=== PATIENT | female | born 1945 | race Caucasian/White ===

== ENCOUNTER 2017-04-09 06:15 | Inpatient (IN) | payer OTHER ==
[2017-03-12 10:38] VITALS: BMI 36.0
--- NOTE | 2017-03-12 11:13 | PAT Medication Instructions ---
Service Date March 12, 2017. Current Home Medication List Atenolol (Tenormin), 50 MG PO HS Biotin (Biotin), 1,000 MCG PO QAM Levothyroxine Sodium (Levothyroxine Sodium), 1 TAB PO HS Lisinopril (Prinivil), 30 MG PO HS Multiple Vitamins W/ Minerals (Icaps Mv), 1 TAB PEG QAM Naproxen (Aleve), 220 MG PO DAILY Omeprazole (Prilosec), 20 MG PO QAM Polyethylene Glycol-Propylene (Systane), 1 DROPS OP BID PRN for RN Simvastatin (Zocor), 40 MG PO HS Timolol Maleate (Ophth) (Timoptic-Xe 0.5% Oph), 1 DROPS OP QAM Medication Instructions For Your Scheduled Surgery - Check with surgeon for instructions: Naproxen (Aleve), 220 MG PO DAILY - Hold the following medications the morning of surgery with a sip of water: Multiple Vitamins W/ Minerals (Icaps Mv), 1 TAB PEG QAM Biotin (Biotin), 1,000 MCG PO QAM - Take the following medications the morning of surgery with a sip of water: Timolol Maleate (Ophth) (Timoptic-Xe 0.5% Oph), 1 DROPS OP QAM Polyethylene Glycol-Propylene (Systane), 1 DROPS OP BID PRN for RN Omeprazole (Prilosec), 20 MG PO QAM - Hold the following medications as scheduled the night before surgery: Lisinopril (Prinivil), 30 MG PO HS - Take the following medications as scheduled the night before surgery: Simvastatin (Zocor), 40 MG PO HS Polyethylene Glycol-Propylene (Systane), 1 DROPS OP BID PRN for RN Levothyroxine Sodium (Levothyroxine Sodium), 1 TAB PO HS Atenolol (Tenormin), 50 MG PO HS If you have any questions please call us at [phone] (Amanda Foote PA-C ) or [phone] or [phone]
--- NOTE | 2017-03-12 11:45 | DIAGNOSTIC IMAGING REPORT ---
CHEST PREADMISSION(PA/LAT) HISTORY: Preop. COMPARISON: None. FINDINGS: The lungs are clear. Cardiac silhouette is normal in size. No pleural effusions. No pneumothorax. IMPRESSION: No acute process. Electronically signed by: David Berry M.D. 03/12/2017 11:44 AM Dictated Date/Time: 03/12/2017 11:42 AM
[2017-03-12 12:08] LABS: PROTHROMBIN TIME (PATIENT) 10.3 SECONDS (9.0-12.0)
--- NOTE | 2017-04-03 12:03 | HISTORY & PHYSICAL EXAMINATION ---
DATE OF ADMISSION: 04/09/2017 CHIEF COMPLAINT: Bilateral knee pain, left side greater than right. HISTORY OF PRESENT ILLNESS: The patient is a 72-year-old female from [place], who presents for surgical treatment of her left knee. She had a long history of bilateral knee pain and discomfort, left side greater than right. She has been through extensive conservative treatment provided by Dr. Barakat in [place]. She has had steroid shots and viscosupplementation. These things worked initially pretty well, but became less successful over time. She describes chronic pain. The more she walks, the more it hurts. She has nighttime pain. She cannot walk any significant distance even to the grocery store without significant pain. She has failed conservative treatment and would like to have her left knee replaced. PAST MEDICAL HISTORY: Significant for, 1. Borderline diabetes. 2. Elevated cholesterol. 3. Hypertension. 4. Obesity with a BMI of 36.2. 5. Gastroesophageal reflux disease. PAST SURGICAL HISTORY: Include: 1. Tonsillectomy. 2. Cataract surgery. ALLERGIES: None. CURRENT MEDICINES: 1. Atenolol 50 mg once a day. 2. Lisinopril 30 mg a day. 3. Simvastatin 40 mg a day. 4. Levothyroxine 100 mcg a day. 5. Omeprazole 30 mg a day. 6. Timolol eyedrops once a day. 7. ICAPS once a day. SOCIAL HISTORY: She is a 72-year-old female. She is . 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 One child. FAMILY HISTORY: Includes heart disease, diabetes, and stomach cancer. REVIEW OF SYSTEMS: Significant for prediabetes. Denies any chest pain or shortness of breath. No history of DVT or PE. No bleeding problems. PHYSICAL EXAMINATION: GENERAL: Reveals a pleasant, middle-aged female. Looks to be in pretty good health. HEENT: Benign. NECK: Supple. No lymphadenopathy. LUNGS: Clear to auscultation. HEART: Regular rate and rhythm. ABDOMEN: Soft, nontender, and nondistended. EXTREMITIES: Grossly neurovascularly intact except as follows: Examination of the left knee reveals the patient ambulates with a slight bit of a limp. She has got moderate soft tissue envelope. Fairly neutral to slight varus knee alignment. Range of motion is about 5 degrees short of full extension and 120 degrees of flexion. No instability. No pain with hip motion. X-RAYS: X-rays of the left knee were reviewed. It shows advanced left knee DJD. She has complete loss of medial joint space. She has subchondral sclerosis. Some mild tibial femoral subluxation. She has got significant patellofemoral disease as well. 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 She has failed conservative treatment and would like to have her left knee replaced. PLAN: We are going to take her to the operating room and do a left total knee replacement. The risks and benefits of this procedure were explained to the patient including, but not limited to DVT, PE, , infection, neurological injury, vascular injury, bleeding problem, pain, limited range of motion, stiffness, failure to relieve her symptoms, incomplete relief of symptoms, need for further surgery in the future, fracture, leg length inequality, nerve palsy, etc. The patient understands and desires to proceed. Informed consent was obtained. As far as discharge plans, she is planning to be discharged to home using [facility] home health program. We did talk about holding her lisinopril in the morning of surgery and make sure she takes her atenolol and levothyroxine.
[2017-04-09] VITALS (9 sets, daily range): BP systolic 117–155; BP diastolic 64–85; PULSE 53–68; TEMP 36.4–36.9; O2SAT 96–100; Ht 157.5 cm; Wt 89.8 kg
[~2017-04-09] VITALS: Ht 157.5 cm; Wt 89.8 kg
[~2017-04-09 06:15] MED LIST: ACETAMINOPHEN 500 MG TAB PO SCH; ATEN50TA8 PO; BIOT1TAB5 PO; BUPIVACAINE LIPOSOME 266 MG, BUPIVACAINE/EPINEPHRINE INJ 50 ML, SODIUM CHLORIDE 0.9% PF... INFIL SCH; CEFAZOLIN 2000 MG/60 ML D5W 60 ML IV SCH; FAMOTIDINE 20 MG TAB PO SCH; GABAPENTIN 300 MG CAP PO SCH; LACTATED RINGER'S 1000ML 1,000 ML IV SCH; LACTATED RINGER'S 1000ML 500 ML IV ONE; LACTATED RINGER'S 1000ML IV SCH; LEVO100T7 PO; LISI-526 PO; METOCLOPRAMIDE HCL 10 MG TAB PO SCH; MULTTAB17 PO; NAPR1TAB9 PO; POLYSOL4 OP; PRLSR20 PO; SCOPOLAMINE 1.5 MG TDSY TD SCH; SIMV40TA2 PO; TIMO0.5S2 OP
[2017-04-09] MEDS ORDERED: TRANEXAMIC ACID INJ 1,000 MG in SODIUM CHLORIDE 0.9% 100ML 100 ML IV SCH ×2 (06:30→17:00)
[2017-04-09] MEDS ORDERED: ROPIVACAINE 0.5% 5 MG/ML 30 ML VIAL ONE ×2 (06:38→09:03)
--- NOTE | 2017-04-09 06:43 | History & Physical Bridge Note ---
H&P Re-Evaluation Bridge Note: I have examined the patient, reviewed the History & Physical and in the interval since the performance of the History & Physical I have noted the following changes of clinical significance: No changes noted
[2017-04-09] MEDS ORDERED: MIDAZOLAM HCL 1 MG/ML 2ML VIAL ONE ×2 (07:56→09:01)
[2017-04-09] MEDS ORDERED: FENTANYL CITRATE INJ 50 MCG/1 ML 2 ML VIAL ONE ×2 (07:56→09:01)
[2017-04-09] MEDS ORDERED: BUPIVACAINE 0.5 % 5 MG/1 ML PF 10ML VIAL ONE (09:01)
[2017-04-09] MEDS ORDERED: BUPIVACAINE 0.25% 30 ML VIAL ONE (09:01)
[2017-04-09] MEDS ORDERED: SODIUM CHLORIDE 0.9% PF 50 ML VIAL ONE (09:11)
[2017-04-09] MEDS ORDERED: BUPIVACAINE LIPOSOME 1/3% 266 MG/20 ML VIAL INFIL ONE (09:11)
[2017-04-09] MEDS ORDERED: BUPIVACAINE/EPINEPHRINE 0.25% 1:200,000 30 ML VIAL ONE (09:11)
[2017-04-09] MEDS ORDERED: BACITRACIN 50000 UNIT VIAL ONE (09:11)
[2017-04-09] MEDS ORDERED: EpHEDrine SULFATE INJ 50 MG/ML AMP IV PRN (09:45)
[2017-04-09] MEDS ORDERED: ONDANSETRON INJ 2 MG/ML 2 ML VIAL IV PRN ×2 (09:45→11:15)
[2017-04-09] MEDS ORDERED: ATROPINE SULFATE 0.1 MG/ML 5ML SYR IV PRN (09:45)
[2017-04-09] MEDS ORDERED: PHENYLEPHRINE 100MCG/ML 5ML SYR IV PRN (09:45)
[2017-04-09] MEDS ORDERED: HYDROmorphone INJ 2 MG/ML SYR/VIAL IV PRN (09:45)
[2017-04-09] MEDS ORDERED: PROPOFOL IV EMULSION 10 MG/ML 20 ML VIAL IV ONE (10:21)
[2017-04-09] MEDS ORDERED: LIDOCAINE HCL 2% 2 ML VIAL (20MG/ML) ONE (10:21)
--- NOTE | 2017-04-09 11:08 | [facility] Post Operative Brief Note ---
Immediate Operative Summary Operative Date Apr 09, 2017. Pre-Operative Diagnosis Left Knee Advanced Degenerative Joint Disease Post-Operative Diagnosis Left Knee Advanced Degenerative Joint Disease Procedure(s) Performed Left Total Knee Arthroplasty Surgeon Dr. De Los Santos Manager Simulation Surgeon(s) KASSI Rust Estimated Blood Loss 50 ml Findings Left Knee DJD Fluids (cc crystalloids) 1200 cc Specimens A. Left Knee Bone and Tissue Drains None Anesthesia Spinal Complication(s) None Disposition Recovery Room / PACU
[2017-04-09] MEDS ORDERED: ZOLPIDEM TARTRATE 5 MG TAB PO PRN (11:15)
[2017-04-09] MEDS ORDERED: BISACODYL 10 MG SUPP PR PRN (11:15)
[2017-04-09] MEDS ORDERED: MAGNESIUM HYDROXIDE SUSP 30 ML UDC PO PRN (11:15)
[2017-04-09] MEDS ORDERED: ALUMINUM/MAGNESIUM/SIMETH (MAALOX MAX) 30 ML UDC PO PRN (11:15)
[2017-04-09] MEDS ORDERED: METOCLOPRAMIDE HCL INJ 5 MG/ML 2 ML VIAL IV PRN (11:15)
[2017-04-09] MEDS ORDERED: SILVER SULFADIAZINE 1% CR 50 GM JAR EXT PRN (11:15)
[2017-04-09] MEDS ORDERED: OXYCODONE HCL IR 5 MG TAB (IMMEDIATE RELEASE) PO PRN (11:15)
[2017-04-09] MEDS ORDERED: HYDROmorphone INJ 1 MG/ML SYR IV PRN (11:15)
--- NOTE | 2017-04-09 11:40 | OPERATIVE REPORT ---
DATE OF OPERATION: 04/09/2017 SURGEON: Silas De Los Santos MD. [employer] REPRESENTATIVE: KASSI Minor. PREOPERATIVE DIAGNOSIS: Left knee degenerative joint disease. POSTOPERATIVE DIAGNOSIS: Same. PROCEDURE PERFORMED: Left cemented posterior stabilized total knee arthroplasty. COMPLICATIONS: None. ESTIMATED BLOOD LOSS: 50 mL FLUID REPLACEMENT: 1200 mL crystalloid fluid replacement. ANESTHESIA: Spinal with adductor canal block. DRAINS: None. SPECIMENS: Left knee sent for pathology. TOURNIQUET TIME: 51 minutes at 300 mmHg. OPERATIVE INDICATIONS: The patient is a 72-year-old female who has had a long history of bilateral knee pain and discomfort, left side worse than right. She has been through extensive conservative treatment without adequate relief. X-rays reveal advanced left knee DJD. She elected to proceed with operative treatment. OPERATIVE FINDINGS: Operative findings revealed advanced left knee DJD. She had grade 4 [id number]-[id number] disease in all 3 compartments, most severe in the medial and patellofemoral compartments. She did have punctate bleeding of the bone and her femur particularly looked irritated. She had some moderate synovitis. She had osteophytes primarily in the medial compartment. OPERATIVE IMPLANTS: Operative implants consisted of: 1. Biomet Vanguard size 65 left posterior stabilized femoral component. 2. Biomet size 67 tibial tray. 3. A 10 mm posterior stabilized polyethylene insert. 4. A 31 x 8 all poly patella. OPERATIVE PROCEDURE: The patient taken to the operating room, identified and placed on the operating table in supine position. All contact areas were appropriately padded. IV antibiotics were provided by anesthesia team. A spinal anesthetic and adductor canal block had been provided in the holding area. Mar catheter was placed in sterile fashion. A left thigh tourniquet was then placed and left lower extremity was then prepped and draped in usual sterile fashion. Left leg was elevated and exsanguinated with Esmarch and tourniquet was placed at 300 mmHg. An anterior approach to the left knee was then performed through a longitudinal incision centered over the patella. Sharp dissection was carried out through the subcutaneous tissues down to the level of the extensor mechanism. A medial parapatellar arthrotomy incision was made. Some subperiosteal dissection was carried out medially. The fat pad was resected from beneath the patellar tendon. The lateral patellofemoral ligament was released. The patella was everted and knee was flexed. The osteophytes were taken off the distal femur. The ACL and PCL were then released from the distal femur and the tibia subluxated anteriorly. The external tibial alignment jig was then placed in the anterior face of the tibia and adjusted 14 mm medially. Proximal tibial cut was made to remove about 2 mm of bone from the most deficient aspect of the medial tibial plateau. Some osteophytes were taken off medial and posteromedially. Tibia was sized to a size 67. Attention was then drawn to the femur. The distal femur was entered with a sharp drill. An intramedullary canal was suctioned. A left 5-degree valgus cutting guide was placed. Distal femoral cutting block was pinned in place. Distal femoral cut was made to take an additional 3 mm of bone off the distal femur. The femur was then sized to a size 65. We did downsize this slightly. The AP cutting block was pinned parallel to the epicondylar axis which was 4 degrees of external rotation. The anterior cut, anterior chamfer, posterior cut, posterior chamfer cuts were made. Box cutting guide was placed and adjusted slightly lateral and the box cut was made. The knee was flexed. The remnants of the medial and lateral menisci were excised. The osteophytes were taken off the posterior aspect of the femur. A trial femoral component was placed. Tibial tray was pinned in maximum external rotation, and drill and stem punch were used to create defect in proximal tibia for the tibial tray. The knee was then trialed and a 10 mm insert fit most appropriately. Attention was then drawn to the patella. The patella was cleaned of all soft tissues. Patellar thickness measured 17 mm in the central aspect and was cut down to 12. It was sized to a size 31 patella. Lug holes were drilled for the 31 patella. The lateral osteophyte was removed. Patella button was placed. Knee was taken through range of motion and patella tracked nicely with no thumbs test. Attention was then drawn toward placement of the permanent components. All trial components were removed. A bone plug was placed in the distal femur to limit blood loss. A double batch of Palacos G cement was mixed. A left size 65 posterior stabilized femoral component, a size 67 tibial tray, 10 mm posterior stabilized polyethylene insert, and a 31 x 8 all poly patella were then cemented in place. Knee was brought out into full extension until cement hardened. A final cement check was then performed. Pericapsular tissues were injected with 100 mL of a combination of 20 mL of Exparel, 30 mL of normal saline, 50 mL of 0.25% Marcaine with epinephrine. The patient did receive 1 gram of tranexamic acid. The tourniquet was then let down for a final tourniquet time of 51 minutes. Hemostasis was assured with use of electrocautery. The wound was once again irrigated. The extensor mechanism was then closed with a combination of #1 PDS suture and #1 Vicryl suture in a [id number] fashion. Extensor mechanism was checked and found to be intact. Subcutaneous tissues were then closed with 2-0 Dexon suture in a buried interrupted fashion. Skin was closed skin kaz. Leg was then cleaned and dried, and a sterile dressing of Xeroform, 4 x 4, sterile cast padding and Sravan bandage was applied. The patient then transferred to the recovery room in stable condition. The patient tolerated the procedure well with no complications. All needle and sponge counts were correct at the end of the operation. I attest to the content of the Intraoperative Record and any orders documented therein. Any exception s are noted below.
--- NOTE | 2017-04-09 12:24 | DIAGNOSTIC IMAGING REPORT ---
LEFT KNEE 1 OR 2 VIEWS ROUTINE CLINICAL HISTORY: AP/LATERAL IN PACU LEFT KNEE COMPARISON: None. DISCUSSION: Total left knee replacement. Good contact between prosthetic and underlying bone. Expected soft tissue postoperative change IMPRESSION: Anatomic alignment status post total left knee replacement Electronically signed by: Duane Rodriguez M.D. 04/09/2017 12:23 PM Dictated Date/Time: 04/09/2017 12:21 PM
[2017-04-09] MEDS: SODIUM CHLORIDE 0.9% 1000ML 1,000 ML IV SCH ×2 (13:35→18:50)
--- NOTE | 2017-04-09 13:58 | Anesthesiology Progress Note ---
Anesthesia Post Op Note Date & Time Apr 09, 2017 at 13:58 Vital Signs Pain Intensity: 0.0 Vital Signs Past 12 Hours Date Time Temp Pulse Resp B/P (MAP) Pulse Ox O2 Delivery O2 Flow Rate FiO2 04/09/17 13:41 36.9 57 17 147/84 (105) 99 Nasal Cannula 2.0 04/09/17 13:10 36.4 53 17 117/74 (88) 98 Nasal Cannula 2.0 04/09/17 12:40 96 Nasal Cannula 2.0 04/09/17 12:40 36.5 57 16 124/64 (84) 96 Nasal Cannula 2.0 04/09/17 12:40 Nasal Cannula 2.0 04/09/17 12:14 53 14 04/09/17 12:14 52 14 95 04/09/17 12:13 36.2 52 20 111/49 96 Nasal Cannula 2 04/09/17 12:12 111/49 04/09/17 12:09 51 15 95 04/09/17 12:09 52 15 04/09/17 12:07 129/59 04/09/17 12:04 56 16 04/09/17 12:04 54 16 97 04/09/17 12:02 118/44 04/09/17 11:59 54 14 04/09/17 11:59 52 14 96 04/09/17 11:57 110/43 04/09/17 11:54 52 15 92 04/09/17 11:54 54 15 04/09/17 11:52 112/48 04/09/17 11:49 53 13 96 04/09/17 11:49 53 13 04/09/17 11:47 119/51 04/09/17 11:44 53 14 95 04/09/17 11:44 53 14 04/09/17 11:42 121/50 04/09/17 11:39 52 12 95 04/09/17 11:39 52 12 04/09/17 11:37 130/54 04/09/17 11:34 51 17 04/09/17 11:34 51 17 98 04/09/17 11:32 121/53 04/09/17 11:29 59 15 100 04/09/17 11:29 59 15 04/09/17 11:27 118/54 04/09/17 11:24 54 14 04/09/17 11:24 54 14 100 04/09/17 11:22 112/62 04/09/17 11:19 55 14 04/09/17 11:19 64 14 99 04/09/17 11:17 108/48 04/09/17 11:15 36.1 48 20 108/48 97 Mask 10 04/09/17 06:45 36.9 66 18 130/68 96 Room Air Notes Mental Status: alert / awake / arousable, participated in evaluation Pt Amnestic to Procedure: Yes Nausea / Vomiting: adequately controlled Pain: adequately controlled Airway Patency, RR, SpO2: stable & adequate BP & HR: stable & adequate Hydration State: stable & adequate Anesthetic Complications: no major complications apparent
[2017-04-09] MEDS: FERROUS GLUCONATE 324 MG TAB PO SCH ×2 (14:15→18:46)
[2017-04-09] MEDS: ACETAMINOPHEN 500 MG TAB PO SCH ×2 (14:16→22:41)
[2017-04-09] MEDS: KETOROLAC TROMETHAMINE 30 MG/ML VIAL IV. SCH ×2 (15:45→22:41)
[2017-04-09] MEDS: CHECK SCOPOLAMINE PATCH PLACEMENT SCH ×2 (15:45→23:30)
--- NOTE | 2017-04-09 16:06 | PROGRESS NOTE ---
DATE: 04/09/2017 SUBJECTIVE: A 72-year-old white female postop from a left knee replacement. She is doing pretty well. Still does not have much feeling in her legs. No pain. No chest pain or shortness of breath. Not feeling dizzy or lightheaded. OBJECTIVE: VITAL SIGNS: Temperature 36.5. Vital signs stable. GENERAL: Reveals a pleasant, middle-aged female. She is sitting up in bed and talking to her . She looks pretty comfortable. LUNGS: Clear to auscultation. HEART: Has a regular rate and rhythm. ABDOMEN: Soft, nontender, nondistended. EXTREMITIES: Grossly neurovascularly intact except as follows: Examination of the left lower extremity reveals the leg to be well aligned. Dressing is clean, dry and intact. She is just starting to be able to wiggle her toes. She has got brisk refill. No significant sensory function yet. X-RAYS: X-rays of the left knee from recovery room reviewed. It shows a left cemented posterior stabilized total knee arthroplasty. Components look to be in good position. No signs of problems. ASSESSMENT: A 72-year-old white female postop from a left knee replacement, doing well. Pain is controlled. Spinal is just wearing off. PLAN: 1. DVT prophylaxis including thigh-high TEDs, SCDs, and aspirin twice a day. 2. PT/OT. Weightbearing as tolerated. Left total knee protocol. 3. Pain control - doing well with current pain regimen. We will obviously have to add medicines as the spinal wears off. 4. IV antibiotics x24 hours. 5. Disposition: She is planning to be discharged to home likely with some home health once adequately recovered. JOHN
[2017-04-09] MEDS: CEFAZOLIN IV 2,000 MG in DEXTROSE 5% 50ML 50 ML IV SCH (18:46)
[2017-04-09] MEDS: TAPENTADOL ER 50 MG TABCR PO SCH (21:00)
[2017-04-09] MEDS ORDERED: ARTIFICIAL TEARS OP SOLN OP PRN ×2 (21:00)
[2017-04-09] MEDS: SENNA 8.6 MG TAB PO SCH (22:40)
[2017-04-09] MEDS: LEVOTHYROXINE 100 MCG TAB PO SCH (22:41)
[2017-04-09] MEDS: SIMVASTATIN 40 MG TAB PO SCH (22:42)
[2017-04-09] MEDS: DOCUSATE SODIUM 100 MG CAP PO SCH (22:42)
[2017-04-09] MEDS: ASPIRIN 325 MG ECTAB PO SCH (22:43)
[2017-04-10] MEDS: SODIUM CHLORIDE 0.9% 1000ML 1,000 ML IV SCH (02:17)
[2017-04-10] MEDS: CEFAZOLIN IV 2,000 MG in DEXTROSE 5% 50ML 50 ML IV SCH (02:17)
[2017-04-10] MEDS: KETOROLAC TROMETHAMINE 30 MG/ML VIAL IV. SCH ×4 (04:30→21:24)
[2017-04-10 04:35] VITALS: BP 135/80; PULSE 66; TEMP 36.8; O2SAT 96
[2017-04-10] MEDS: ACETAMINOPHEN 500 MG TAB PO SCH ×3 (05:34→21:24)
[2017-04-10 06:27] LABS: HEMATOCRIT 37.6 % (37-47); MEAN CELL VOLUME 85.8 fL (80-100); MEAN CORPUSCULAR HEMOGLOBIN 28.8 pg (25-34); MEAN CORPUSCULAR HGB CONC 33.5 g/dl (32-36); MEAN PLATELET VOLUME 10.9 fL (7.4-10.4); PLATELET COUNT 174 K/uL (130-400); RED BLOOD COUNT 4.38 M/uL (4.2-5.4); WHITE BLOOD COUNT 7.01 K/uL (4.8-10.8)
[2017-04-10 07:03] LABS: BUN/CREATININE RATIO 14.9 (10-20); CALCIUM 7.3 mg/dl (8.5-10.1); CREATININE 0.72 mg/dl (0.60-1.20); POTASSIUM 3.7 mmol/L (3.5-5.1)
[2017-04-10 07:38] VITALS: O2SAT 96
[2017-04-10] MEDS: CHECK SCOPOLAMINE PATCH PLACEMENT SCH ×3 (07:42→23:48)
[2017-04-10 07:44] VITALS: BP 142/82; PULSE 64; TEMP 36.7; O2SAT 96
[2017-04-10] MEDS: PANTOprazole SOD 40 MG TAB PO SCH (08:28)
[2017-04-10] MEDS: FERROUS GLUCONATE 324 MG TAB PO SCH ×3 (08:28→17:49)
[2017-04-10] MEDS: DOCUSATE SODIUM 100 MG CAP PO SCH ×2 (08:28→21:23)
[2017-04-10] MEDS: CEROVITE ADV FORMULA TAB PO SCH (08:28)
[2017-04-10] MEDS: TIMOLOL GFS 0.5% OPH SOLN 74 DROPS/5 ML BTL OP SCH (08:28)
[2017-04-10] MEDS: TAPENTADOL ER 50 MG TABCR PO SCH ×2 (08:29→21:00)
[2017-04-10] MEDS: ASPIRIN 325 MG ECTAB PO SCH ×2 (08:29→21:23)
--- NOTE | 2017-04-10 08:44 | Anesthesiology Progress Note ---
Anesthesia Post Op Note Date & Time Apr 10, 2017 at 08:43 Vital Signs Vital Signs Past 12 Hours Date Time Temp Pulse Resp B/P (MAP) Pulse Ox O2 Delivery O2 Flow Rate FiO2 04/10/17 07:44 36.7 64 22 142/82 (102) 96 Room Air 04/10/17 07:38 96 Room Air 04/10/17 07:25 Room Air 04/10/17 04:35 36.8 66 16 135/80 (98) 96 Room Air 04/09/17 23:37 Room Air 04/09/17 23:16 36.8 68 16 138/85 (102) 98 Room Air Notes Mental Status: alert / awake / arousable, participated in evaluation Pt Amnestic to Procedure: Yes Nausea / Vomiting: adequately controlled Pain: adequately controlled Airway Patency, RR, SpO2: stable & adequate BP & HR: stable & adequate Hydration State: stable & adequate Neuraxial Anesthesia: was administered, sensory block resolved Anesthetic Complications: no major complications apparent
[2017-04-10] MEDS ORDERED: NON-FORMULARY MEDICATION (Omeprazole (Prilosec) 20 MG) PO SCH (09:00)
[2017-04-10] MEDS ORDERED: MULTIVITAMIN TAB PO SCH (09:00)
[2017-04-10 11:41] VITALS: BP 132/78; PULSE 67; TEMP 36.8; O2SAT 96
[2017-04-10] MEDS ORDERED: RXC5 PO (12:48)
[2017-04-10] MEDS ORDERED: ACET-1138 PO (12:48)
[2017-04-10] MEDS ORDERED: ASPEC325 PO (12:48)
--- NOTE | 2017-04-10 12:50 | Discharge Instructions ---
Discharge Instructions Date of Service Apr 10, 2017. Admission Reason for Admission: Left Knee Degenerative Joint Disease Discharge Discharge Diagnosis / Problem: Left KNee REplacement Discharge Goals Goal(s): Decrease discomfort, Improve function, Increase independence, Improve disease control, Therapeutic intervention Activity Recommendations Activity Limitations: per Instructions/Follow-up section Weightbearing Status: Left weightbearing . Instructions / Follow-Up Instructions / Follow-Up ACTIVITY RECOMMENDATIONS: Physical Therapy: * You will go to physical therapy three times each week for four to six weeks after your surgery in order to regain your knee range of motion and to retrain your knee to work properly. * It is just as important to make sure you are getting your knee perfectly straight as it is to regain your knee bend. * Taking a pain pill an hour before therapy can help you have a more productive and comfortable therapy session. Home Exercise: * You were shown a series of exercises (heel props, heel slides, etc.) in the hospital. Do these exercises three to four times each day including the exercises you were shown in physical therapy. Walking: * Get up and walk several times each day. For the first four weeks, try not to stand or walk for more than one hour at a time. If you do stand or walk for more than one hour, you will not hurt anything, but your knee and leg will likely swell. * As you feel comfortable, you may change from the walker or crutches to a cane and then to independent walking. MEDICATIONS: New Medicine: * You will likely be taking one or more of these medications: 1. Oxycodone - A quick and shorter-acting pain medication. Take one to two tablets every four to six hours to lessen your pain. 2. Aspirin - Thins your blood to lessen the chance of forming a blood clot. * The most common side effects of pain medicine and iron are nausea and constipation. If nausea or constipation is too much of a problem or if you have any questions about your new medicines or doses, call [facility] at . We will try to help you manage these issues. VERY IMPORTANT TO READ AND REVIEW" Pain: * The immediate post-operative period after knee replacement surgery is often quite painful. * You are given a prescription for pain medicine. You should take it, as directed, when you need it, especially before physical therapy and before going to bed. Pain that interferes with sleep is very common and can last several months. * You will likely need pain medicine for the first four to six weeks. It will not stop all of the pain. The pain will lessen and as you feel better, you may change to milder pain medicine such as Tylenol. * The most common side effects of pain medicine are nausea and constipation, so don't take more than you need. SPECIAL CARE INSTRUCTIONS: TEDs/Elastic Stockings: * The white elastic stockings help limit swelling and prevent blood clots from forming in your legs. The more you wear them, the more they work. * Wear them for six weeks after knee replacement surgery and four weeks after partial knee replacement. Prevention of Infection: * Take antibiotics one hour before any dental cleaning, dental work, urological procedure, gastrointestinal procedure or any invasive surgery in order to prevent your new joint from getting infected. * You may get the antibiotics from the doctor performing the procedure or you may call our office at before and we will call in a prescription to the pharmacy of your choice. Things to Watch For: * Drainage from the incision site that occurs more than one week after your surgery. * Severely increased knee/leg pain or swelling. * Increased redness at the incision site. * Fever above 102 degrees Fahrenheit. * Unusual chest pain or shortness of breath. * Unusual pain or burning with urination. Call [facility] at with any of the above problems or if you have any questions about your medicines or recovery. FOLLOW UP VISIT: Make an appointment to see your doctor for approximately two weeks after surgery for a progress check and staple removal by calling the office at . Current Hospital Diet Patient's current hospital diet: Diabetes Type 2 Diet Discharge Diet Recommended Diet: Diabetes Type 2 Diet Procedures Procedures Performed: Left Total Knee Arthroplasty Pending Studies Studies pending at discharge: no Medical Emergencies . Who to Call and When: Medical Emergencies: If at any time you feel your situation is an emergency, please call 551 immediately. . Non-Emergent Contact Non-Emergency issues call your: Surgeon . "Provider Documentation" section prepared by Silas De Los Santos. . VTE Core Measure Inpt VTE Proph given/why not?: Other Anticoagulation, T.E.D. Stockings, SCD's
--- NOTE | 2017-04-10 12:55 | PROGRESS NOTE ---
DATE: 04/10/2017 DATE: 04/10/2017. SUBJECTIVE: A 72-year-old white female postop day 1 from left knee replacement. She is doing pretty well. Pain seems to be controlled. Denies any chest pain or shortness of breath. Not feeling dizzy or lightheaded. Therapy went pretty well this morning. OBJECTIVE: VITAL SIGNS: Temperature 36.8. Vital signs stable. PHYSICAL EXAMINATION: GENERAL: Reveals a pleasant elderly female. She is lying in bed, looks pretty comfortable. LUNGS: Clear to auscultation. HEART: Regular rate and rhythm. ABDOMEN: Soft, nontender, nondistended. EXTREMITY EXAMINATION: Grossly neurovascularly intact except as follows: Examination of the left leg reveals the dressing to be clean, dry and intact. Leg is well aligned. She can dorsiflex and plantarflex her foot appropriately. She is neurologically intact. LABORATORY DATA: Hemoglobin 12.6, hematocrit 37.6. Electrolytes are stable. ASSESSMENT: A 72-year-old female postop day 1 from left knee replacement, doing well. Pain seems to be controlled. She is neurologically intact. PLAN: 1. DVT prophylaxis including thigh-high TEDs, SCDs, and aspirin twice a day. 2. PT and OT. Weight bear as tolerated. Left total knee protocol. 3. Pain control. Doing pretty well with current pain regimen. 4. Disposition. She is planning to be discharged to home likely with some home health once adequately recovered.
[2017-04-10 15:17] VITALS: BP 147/81; PULSE 74; TEMP 36.6; O2SAT 98
[2017-04-10] MEDS: SIMVASTATIN 40 MG TAB PO SCH (21:23)
[2017-04-10] MEDS: LEVOTHYROXINE 100 MCG TAB PO SCH (21:23)
[2017-04-10] MEDS: SENNA 8.6 MG TAB PO SCH (21:23)
[2017-04-11] MEDS: KETOROLAC TROMETHAMINE 30 MG/ML VIAL IV. SCH ×2 (04:25→10:10)
[2017-04-11] MEDS: ACETAMINOPHEN 500 MG TAB PO SCH (05:19)
--- NOTE | 2017-04-11 07:44 | PROGRESS NOTE ---
DATE: 04/11/2017 DATE: 04/11/2017. SUBJECTIVE: A 72-year-old white female postop day 2 from a left knee replacement. She is doing pretty well. A little more sore this morning. No chest pain or shortness of breath. Not feeling dizzy or lightheaded. OBJECTIVE: VITAL SIGNS: Temperature is 36.6. Vital signs stable. PHYSICAL EXAMINATION: GENERAL: Shows a healthy pleasant, middle-aged female. She is lying in bed, looks reasonably comfortable. EXTREMITIES: Examination of the left leg reveals the leg to be well aligned. Just a trace bit of bloody drainage on her dressing. She can dorsiflex and plantarflex her foot appropriately. She is neurologically intact. ASSESSMENT: A 72-year-old female postop day 2 from a left knee replacement, doing pretty well. A little bit more sore today which is not too unusual considering therapy. PLAN: 1. DVT prophylaxis including thigh-high TEDs, SCDs, and aspirin twice a day. 2. PT/OT. Weightbearing as tolerated. Left total knee protocol. 3. Pain control. Doing pretty well with current pain regimen. 4. Disposition. Plan to discharge to home with some home health after therapy today.
[2017-04-11 07:51] VITALS: BP 138/82; PULSE 66; TEMP 36.5; O2SAT 98
[2017-04-11 08:14] VITALS: O2SAT 98
[2017-04-11] MEDS: TIMOLOL GFS 0.5% OPH SOLN 74 DROPS/5 ML BTL OP SCH (08:51)
[2017-04-11] MEDS: PANTOprazole SOD 40 MG TAB PO SCH (08:51)
[2017-04-11] MEDS: DOCUSATE SODIUM 100 MG CAP PO SCH (08:52)
[2017-04-11] MEDS: CEROVITE ADV FORMULA TAB PO SCH (08:52)
[2017-04-11] MEDS: FERROUS GLUCONATE 324 MG TAB PO SCH (08:52)
[2017-04-11] MEDS: ASPIRIN 325 MG ECTAB PO SCH (08:52)
[2017-04-11] MEDS: TAPENTADOL ER 50 MG TABCR PO SCH (08:52)
[2017-04-11 12:02] VITALS: BP 138/82; PULSE 66; TEMP 36.5; O2SAT 98
[2017-04-11] MEDS ORDERED: LISINOPRIL 20 MG TAB PO SCH (21:00)
--- NOTE | 2017-04-17 14:47 | DISCHARGE SUMMARY ---
ADMITTING PHYSICIAN AND SURGEON: Dr. De Los Santos. ADMITTING DIAGNOSIS: Left knee degenerative joint disease. SURGERY PERFORMED: Left total knee arthroplasty. SECONDARY DIAGNOSES: Borderline diabetes, elevated cholesterol, hypertension, obesity, and gastroesophageal reflux disease. CONSULTS: None obtained. HOSPITAL COURSE: The patient was admitted on 04/09/2017 and underwent total knee arthroplasty. She tolerated the procedure well. There were no complications. She was transferred to the PACU postoperatively and later to the orthopedic floor for further care. She was given Ancef for antibiotic prophylaxis and CHETNA stockings, SCDs and aspirin for DVT prophylaxis. Hemoglobin, hematocrit and vital signs were monitored during her hospital stay and remained stable. She did not require any blood transfusions. There were no complications. By postoperative day 2, she was tolerating a diabetic diet. Pain was controlled with oral pain medicine. She was participating in physical therapy and had no signs or symptoms of deep vein thrombosis. On postoperative day 2, she was discharged home and set up with home health services, given printed discharge instructions including new prescriptions for extra strength Tylenol, aspirin 325 mg b.i.d., and oxycodone. Continue her home medications, continue physical therapy, weightbearing as tolerated, and CHETNA stockings. Follow up in 10-12 days or sooner if there are any problems or concerns.
== END 2017-04-11 12:43 | disposition home health service (06) | DRG 470 ==
LOC: C.ACU 06:15 → C.3E 09:40 → ENRESERV 12:10
PROVIDERS: ADMIT Orthopaedic Surgery Sports Medicine; ATTEND Orthopaedic Surgery Sports Medicine
PROC: 0SRD0J9 Replacement of Left Knee Joint with Synthetic Substitute, Cemented, Open Approach (ICD-10-PCS; principal; 2017-04-09 08:50)
DX: M17.0 Bilateral primary osteoarthritis of knee (principal); E78.00 Pure hypercholesterolemia, unspecified; I10 Essential (primary) hypertension; E66.9 Obesity, unspecified; K21.9 Gastro-esophageal reflux disease without esophagitis; H40.9 Unspecified glaucoma; R73.09 Other abnormal glucose; M65.9 Synovitis and tenosynovitis, unspecified; E78.5 Hyperlipidemia, unspecified; E03.9 Hypothyroidism, unspecified; Z79.899 Other long term (current) drug therapy; Z68.36 Body mass index [BMI] 36.0-36.9, adult; Z79.1 Long term (current) use of non-steroidal anti-inflammatories (NSAID)